=== PATIENT | female | born 1955 | race Caucasian/White ===

== ENCOUNTER 2025-07-15 10:31 | Outpatient (AMB) | payer MEDICARE, OTHER, SELFPAY ==
--- NOTE | 2025-07-15 10:35 | MHC.OFFVIS ---
Vital Signs 07/15/25 10:44 Weight 154 lb BP 110/70 Blood Pressure Location Lt brachial Position Sitting Pulse 98 Pulse Source Pulse Oximeter Pulse Oximetry (%) 97 Oxygen Delivery Method Room Air Intake Visit Reasons: ENP-Snoring/Day time Fatigue Veneer Layer Required: No Accompanied by: Self / Same As Patient Allergies No Known Allergies Allergy (Verified 07/15/25 10:35) HPI Comments Details: 69 year old female referred to us by Dr. Leonardo, [facility] Breast cancer 2018 with resection of r. breast, and radiation therapy. 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 She has been snoring loudly for years now and it has become profoundly worse. Her with ALS passed, Jul 2025. She wakes up chronically fatigued, has bruxism, does not wear her mouth guard due to anxiety. She has difficulty staying asleep and falling asleep takes trazadone 150mg po qpm. She is a restless sleeper, needs her space. She fell out of a twin bed, 04/2025, pulled her muscles in the lower back and pectoral muscles r. side. She has acid reflux manged with diet, lifestyle and omeprazole. She has anxiety, and takes fluoxetine for depression, though manageable, despite many transitions this year. She has 15lb weight gain, over the last few years, and exercises as tolerable, due to bilateral arthritis and pain she avoids stairs. They are bothersome and cause pain in her knees, flat pavement is okay. She has a good support network, 3 children and a best friend who loves and supports her very much. She is in a grief support group.. Denies napping, sits in her recliner. RLS, flailing, thrashing, abnormal sleep movements. FH + AK HTN estranged, Mom 86, cancer pancreatic HTN, mom late onset of AD. [facility] Medical History (Updated 07/15/25 @ 14:53 by Saloni Mirza PA-C) Osteopenia Chronic headaches Depression Difficulty sleeping Hyperlipemia Physical Exam Vital Signs: Last Vital Signs Pulse 98 07/15/25 10:44 BP 110/70 07/15/25 10:44 Pulse Ox 97 07/15/25 10:44 Oxygen Delivery Method Room Air 12/08/25 10:44 Const General: cooperative, comfortable and no acute distress Nutritional Appearance: average body habitus Orientation/consciousness: patient oriented x3 HEENT Face and sinus: Yes face symmetric Teeth and gingiva: other (mallampti score is 3) Eyes Other: r. eye strabismus Pupils: Equal, round and reactive pupils present Neck Neck: Yes full ROM Resp Effort & Inspection: normal respiratory effort and able to speak in complete sentences Neuro General: patient oriented x3 and moves all extremities Cranial nerves: Yes Equal, round and reactive pupils present, Yes Normal accommodation reflex present, Yes Normal facial strength present, Yes Ability to bilaterally rotate head present and Yes Ability to bilaterally elevate shoulders present Cognition (Neuro): normal cognition Gait exam (Neuro): Normal gait present Motor exam (neuro): 5/5 motor strength present throughout and Normal motor muscle tone present throughout Deep tendon reflexes (DTR's): Right triceps reflex intensity grade: 2+, Left triceps reflex intensity grade: 2+, Rt Biceps (C5, C6): 2+, Left biceps reflex intensity grade: 2+, Right brachioradialis reflex intensity grade: 2+, Left brachioradialis reflex intensity grade: 2+, Right patellar reflex intensity grade: 3+ and Left patellar reflex intensity grade: 3+ Coordination: [id number] test normal Psych Appearance: grossly normal Speech and movement: Normal speech and movement present Affect: normal affect Thought process: Normal thought process present Thought content: Normal thought content present Insight: Good insight present (Psych) Results Reviewed Results Reviewed: will request labs from Dr. Fisher's office. Assessment & Plan Assessment & Plan (1) Excessive daytime sleepiness: Code(s): G47.19 - Other hypersomnia Category: Medical (2) Loud snoring: Code(s): R06.83 - Snoring Category: Medical (3) Bruxism (teeth grinding): Code(s): F45.8 - Other somatoform disorders Category: Medical Plan HST r/o LUIGI Labs to determine deficiencies. She is a mouth breather may need a medium sized - full face mask, prefers freedom category. Name needs to be fixed, there is no a- in her last name, per insurance. F/U in 3 months. Orders: Orders RT home sleep study Today G47.19 - Other hypersomnia Patient Instructions: Please complete the following fasting labs to rule out deficiencies. CBC/CMP/ B12/ Vit D/ TSH/ Homocysteine and MMA/ Ferritin. Sleep Hygiene provided: set a scheduled bedtime and wake time to help regulate the circadian rhythm and balance the release of pituitary hormones. Sleep in a dark room, temperatures below 68 degrees, and no devices n bed. Limit caffeinated products 6 hours prior to bed, and limit fluids 2-4 hours prior to bed. Gentle night yoga, diffusing essential oils, and playing soft music can be relaxing. Coding Level of Care Code New Pt Level 4 (92556) Diagnoses Excessive daytime sleepiness G47.19 Loud snoring R06.83 Bruxism (teeth grinding) F45.8 Sleep Questionnaire Difficulty falling asleep: Yes Difficulty staying asleep?: Yes Snoring: Yes Witnessed apneas: Yes Gasping arousals: No Nocturia: No GERD: Yes Vivid dreams: No Acting out dreams: No Abnormal behavior in sleep: No Abnormal movements in sleep: No Morning headaches: Yes Excessive daytime sleepiness: Yes Daytime naps: No Restless legs: No Hallucinations: No Sleep paralysis: No Drop attacks: No Sleep Study: No CPAP: No
[2025-07-15 10:44] VITALS: BP 110/70; PULSE 98; O2SAT 97
== END 2025-07-15 11:53 | disposition home or self-care (01) ==
PROVIDERS: PCP Internal Medicine; Visit Provider Physician Assistant Medical
DX: G47.19 Other hypersomnia (principal); R06.83 Snoring; F45.8 Other somatoform disorders
CPT/HCPCS: 99204

== ENCOUNTER → 2025-07-15 10:31 | Outpatient (BNVA) | payer MEDICARE, OTHER, SELFPAY | PROVIDERS: PCP Internal Medicine; Visit Provider Physician Assistant Medical | DX: R06.83 Snoring (principal); G47.19 Other hypersomnia; F45.8 Other somatoform disorders | CPT/HCPCS: 99202 ==